=== PATIENT | male | born 1965 | race Caucasian/White ===

== ENCOUNTER 2021-09-19 08:21 | Emergency (ER) | payer MEDICAID, OTHER ==
[~2021-09-19] VITALS: Ht 177.8 cm; Wt 79.4 kg
[2021-09-19 08:52] LABS: Urine WBC None Seen /hpf (0 - 3)
[2021-09-19 09:06] LABS: Urine Bacteria NONE SEEN /hpf (None Seen); Urine Blood Negative /uL (Negative)
[2021-09-19 09:28] LABS: Basophils # (auto) 0 10 ^3/uL (0-0.2); Basophils % (auto) 0.6 % (0.0-2.0); Eosinophils # (auto) 0.3 10 ^3/uL (0-0.8); Eosinophils % (auto) 3.9 % (0.0-7.0); Hematocrit 44.8 % (41.0-53.0); Hemoglobin 15.6 g/dL (13.5-17.5); Lymphocytes # (auto) 1.5 10 ^3/uL (0.4-5.4); Lymphocytes % (auto) 20.3 % (10.0-50.0); Mean Corpuscular Hemoglobin 33.3 pg (28.0-32.0); Mean Corpuscular Hgb Conc. 34.9 g/dL (32.0-36.0); Mean Corpuscular Volume 95.4 fL (80.0-100.0); Monocytes # (auto) 0.6 10 ^3/uL (0-1.3); Monocytes % (auto) 8.3 % (0.0-12.0); Neutrophils # (auto) 4.9 10 ^3/uL (1.6-8.6); Neutrophils % (auto) 66.9 % (37.0-80.0); Red Blood Cells 4.69 10^6/uL (4.5-5.90); White Blood Cell 7.3 10^3/uL (4.4-10.8)
[2021-09-19 09:47] LABS: Calcium 8.7 mg/dL (8.5-10.1)
[2021-09-19 09:51] LABS: BUN/Creatinine Ratio 11.8; Bilirubin, Total 0.7 mg/dL (0.2-1.0); Total Protein 6.8 g/dL (6.4-8.2)
[2021-09-19 13:37] VITALS: BP 108/73
== END 2021-09-19 13:45 | disposition home or self-care (01) ==
LOC: ER 08:21
DX: R10.9 Unspecified abdominal pain (principal); F17.210 Nicotine dependence, cigarettes, uncomplicated; F12.10 Cannabis abuse, uncomplicated
CPT/HCPCS: 36415; 74176; 80053; 81001; 85025

== ENCOUNTER 2023-10-09 12:13 | Inpatient (IN) | payer MEDICAID ==
[~2023-10-09] VITALS: Ht 177.8 cm; Wt 63.5 kg
[2023-10-09 13:00] LABS: Basophils # (auto) 0 10 ^3/uL (0-0.2); Eosinophils # (auto) 0 10 ^3/uL (0-0.8); Monocytes # (auto) 0.7 10 ^3/uL (0-1.3); Monocytes % (auto) 10.1 % (0.0-12.0)
[2023-10-09 13:02] LABS: Basophils % (auto) 0.5 % (0.0-2.0); Eosinophils % (auto) 0.1 % (0.0-7.0); Hematocrit 39.7 % (41.0-53.0); Hemoglobin 14.2 g/dL (13.5-17.5); Lymphocytes # (auto) 1.1 10 ^3/uL (0.4-5.4); Lymphocytes % (auto) 16.3 % (10.0-50.0); Mean Corpuscular Hemoglobin 36.5 pg (28.0-32.0); Mean Corpuscular Hgb Conc. 35.8 g/dL (32.0-36.0); Mean Corpuscular Volume 101.9 fL (80.0-100.0); Nucleated Red Blood Cells % 0.1 %; Red Blood Cells 3.89 10^6/uL (4.5-5.90); Red Cell Distribution Width 14.3 % (11.8-14.3); White Blood Cell 6.8 10^3/uL (4.4-10.8)
[2023-10-09] MEDS: SODIUM CHLORIDE 0.9% 1,000 ML IVB ONE (13:08)
[2023-10-09 13:15] VITALS: PULSE 67; RESP 14; O2SAT 95
[2023-10-09] MEDS ORDERED: DOCUSATE SOD 100 MG CAP PO PRN (14:15)
[2023-10-09] MEDS ORDERED: HYDROcodone-ACET 5/325MG TAB PO PRN (14:15)
[2023-10-09] MEDS ORDERED: ACETAMINOPHEN 325 MG TAB PO PRN (14:15)
[2023-10-09] MEDS ORDERED: ONDANSETRON HCL 4 MG/2 ML VIAL IV PRN (14:15)
[2023-10-09 14:30] VITALS: PULSE 76; RESP 16; O2SAT 94
[2023-10-09] MEDS ORDERED: MORPHINE SULFATE INJ 2 MG/ml SYRG IV PRN (15:15)
[2023-10-09] MEDS ORDERED: NITROGLYCERIN 0.4 MG SL TAB SL PRN (15:15)
[2023-10-09] MEDS: SODIUM CHLORIDE 0.9% 1,000 ML IV ONE (16:57)
[2023-10-09 19:45] VITALS: PULSE 85; RESP 14; O2SAT 95
[2023-10-09] MEDS: SODIUM CHLORIDE 0.9% 1,000 ML IV SCH (20:16)
[2023-10-09 22:30] VITALS: BP 112/71; PULSE 71; RESP 18; TEMP 98.3; O2SAT 95
[2023-10-10] VITALS (7 sets, daily range): BP systolic 101–134; BP diastolic 55–79; PULSE 61–73; RESP 18–20; TEMP 97.8–98.5; O2SAT 98–99
[2023-10-10 07:30] LABS: Basophils # (auto) 0 10 ^3/uL (0-0.2); Eosinophils # (auto) 0 10 ^3/uL (0-0.8); Eosinophils % (auto) 0.5 % (0.0-7.0); Mean Corpuscular Hgb Conc. 35.2 g/dL (32.0-36.0); Monocytes # (auto) 0.4 10 ^3/uL (0-1.3); Neutrophils # (auto) 2.6 10 ^3/uL (1.6-8.6); Nucleated Red Blood Cells % 0.1 %
[2023-10-10 07:33] LABS: Basophils % (auto) 0.4 % (0.0-2.0); Hematocrit 34.2 % (41.0-53.0); Lymphocytes % (auto) 24.6 % (10.0-50.0); Mean Corpuscular Hemoglobin 36.3 pg (28.0-32.0); Mean Corpuscular Volume 103.2 fL (80.0-100.0); Monocytes % (auto) 10.9 % (0.0-12.0); Neutrophils % (auto) 63.6 % (37.0-80.0); Red Blood Cells 3.32 10^6/uL (4.5-5.90); Red Cell Distribution Width 14.1 % (11.8-14.3)
[2023-10-10 07:48] LABS: Alanine Aminotransferase 93 U/L (7-40); Albumin 3.7 g/dL (3.2-4.8); Alkaline Phosphatase 74 U/L (46-116); Anion Gap 8 (5-15); Aspartate Aminotransferase 78 U/L (13-40); BUN/Creatinine Ratio 27.3 (10.0-20.0); Bilirubin, Total 1.2 mg/dL (0.2-1.0); Blood Urea Nitrogen 18 mg/dL (9-23); Calcium 9.5 mg/dL (8.7-10.4); Carbon Dioxide 25 mmol/L (20-30); Chloride 112 mmol/L (98-107); Glucose 92 mg/dL (74-106); Potassium 3.5 mmol/L (3.5-5.1); Sodium 145 mmol/L (136-145)
[2023-10-10 07:49] LABS: Total Protein 5.6 g/dL (5.7-8.2)
[2023-10-11] VITALS (8 sets, daily range): BP systolic 106–122; BP diastolic 55–78; PULSE 51–61; RESP 15–20; TEMP 97.7–98.4; O2SAT 95–98
[2023-10-11 08:10] LABS: Basophils # (auto) 0 10 ^3/uL (0-0.2); Basophils % (auto) 0.7 % (0.0-2.0); Eosinophils # (auto) 0 10 ^3/uL (0-0.8); Eosinophils % (auto) 0.8 % (0.0-7.0); Hematocrit 35.5 % (41.0-53.0); Hemoglobin 12.2 g/dL (13.5-17.5); Lymphocytes # (auto) 1.1 10 ^3/uL (0.4-5.4); Lymphocytes % (auto) 28.6 % (10.0-50.0); Mean Corpuscular Hemoglobin 35.2 pg (28.0-32.0); Mean Corpuscular Hgb Conc. 34.3 g/dL (32.0-36.0); Mean Corpuscular Volume 102.8 fL (80.0-100.0); Monocytes # (auto) 0.4 10 ^3/uL (0-1.3); Monocytes % (auto) 11.8 % (0.0-12.0); Neutrophils # (auto) 2.2 10 ^3/uL (1.6-8.6); Neutrophils % (auto) 58.1 % (37.0-80.0); Nucleated Red Blood Cells % 0.4 %; Red Blood Cells 3.45 10^6/uL (4.5-5.90); Red Cell Distribution Width 14.3 % (11.8-14.3); White Blood Cell 3.8 10^3/uL (4.4-10.8)
[2023-10-11 08:33] LABS: Alanine Aminotransferase 93 U/L (7-40); Albumin 3.6 g/dL (3.2-4.8); Alkaline Phosphatase 72 U/L (46-116); Anion Gap 8 (5-15); Aspartate Aminotransferase 75 U/L (13-40); BUN/Creatinine Ratio 21.3 (10.0-20.0); Blood Urea Nitrogen 13 mg/dL (9-23); Calcium 9.6 mg/dL (8.7-10.4); Carbon Dioxide 25 mmol/L (20-30); Chloride 112 mmol/L (98-107); Glucose 95 mg/dL (74-106); Potassium 3.5 mmol/L (3.5-5.1); Sodium 145 mmol/L (136-145)
[2023-10-11 08:34] LABS: Bilirubin, Total 1.2 mg/dL (0.2-1.0); Total Protein 5.4 g/dL (5.7-8.2)
[2023-10-11 23:25] LABS: Urine Bacteria None Seen /hpf (None Seen)
[2023-10-11 23:38] LABS: Urine Blood Negative /uL (Negative); Urine Clarity Clear (Clear); Urine Color Yellow (Yellow); Urine Mucus FEW (None Seen); Urine Protein, UAD Negative (Negative); Urine Specific Gravity 1.017 (1.001-1.035); Urine Urobilinogen 4 mg/dL (Negative); Urine WBC <1 /hpf (0 - 3)
[2023-10-11 23:45] LABS: Amphetamine Screen, Urine Neg (NEGATIVE); Barbiturate Scree,Urine Neg (NEGATIVE); Benzodiazephine Screen, Urine Neg (NEGATIVE); Cannabinoid Screen, Urine Neg (NEGATIVE); Cocaine Screen, Urine Neg (NEGATIVE); Opiate Scree,Urine Neg (NEGATIVE); Phencyclidine Screen, Urine Neg (NEGATIVE)
[2023-10-12] VITALS (7 sets, daily range): BP systolic 119–143; BP diastolic 73–84; PULSE 49–68; RESP 16–20; TEMP 97.5–98.5; O2SAT 96–98
[2023-10-12 06:41] LABS: Basophils # (auto) 0 10 ^3/uL (0-0.2); Eosinophils # (auto) 0 10 ^3/uL (0-0.8); Hemoglobin 10.3 g/dL (13.5-17.5); Monocytes # (auto) 0.3 10 ^3/uL (0-1.3); Neutrophils # (auto) 1.7 10 ^3/uL (1.6-8.6)
[2023-10-12 06:44] LABS: Basophils % (auto) 0.9 % (0.0-2.0); Eosinophils % (auto) 1.3 % (0.0-7.0); Hematocrit 29.4 % (41.0-53.0); Lymphocytes % (auto) 32.3 % (10.0-50.0); Mean Corpuscular Hemoglobin 36.8 pg (28.0-32.0); Mean Corpuscular Hgb Conc. 35.1 g/dL (32.0-36.0); Mean Corpuscular Volume 104.7 fL (80.0-100.0); Monocytes % (auto) 9.5 % (0.0-12.0); Nucleated Red Blood Cells % 0.3 %; Red Blood Cells 2.81 10^6/uL (4.5-5.90); Red Cell Distribution Width 14.3 % (11.8-14.3)
[2023-10-12 06:51] LABS: Alanine Aminotransferase 82 U/L (7-40); Albumin 3.3 g/dL (3.2-4.8); Alkaline Phosphatase 67 U/L (46-116); Anion Gap 6 (5-15); Aspartate Aminotransferase 60 U/L (13-40); BUN/Creatinine Ratio 19.1 (10.0-20.0); Bilirubin, Total 1.3 mg/dL (0.2-1.0); Blood Urea Nitrogen 9 mg/dL (9-23); Calcium 8.9 mg/dL (8.7-10.4); Carbon Dioxide 25 mmol/L (20-30); Chloride 113 mmol/L (98-107); Glucose 92 mg/dL (74-106); Potassium 3.1 mmol/L (3.5-5.1); Sodium 144 mmol/L (136-145); Total Protein 5.1 g/dL (5.7-8.2)
[2023-10-12] MEDS ORDERED: POTASSIUM CHL 20MEQ/100ML 100 ML IV SCH (09:15)
[2023-10-12] MEDS: POTASSIUM CHL 20MEQ/100ML 100 ML IV SCH (11:18)
[2023-10-12] MEDS ORDERED: ENOXAPARIN SOD 40 MG/0.4 ML SYRINGE SC ONE (12:15)
[2023-10-12] MEDS: POTASSIUM EFFERVESENT TAB 25 MEQ PO ONE (16:11)
[2023-10-12] MEDS: LACTULOSE 20Gm/30ML SOLN PO ONE (16:11)
[2023-10-13] VITALS (7 sets, daily range): BP systolic 109–124; BP diastolic 57–81; PULSE 56–71; RESP 16–20; TEMP 97.1–97.9; O2SAT 97–98
[2023-10-13 07:32] LABS: Basophils # (auto) 0 10 ^3/uL (0-0.2); Basophils % (auto) 0.5 % (0.0-2.0); Eosinophils # (auto) 0 10 ^3/uL (0-0.8); Eosinophils % (auto) 1.3 % (0.0-7.0); Hematocrit 33.5 % (41.0-53.0); Hemoglobin 11.7 g/dL (13.5-17.5); Lymphocytes # (auto) 1.1 10 ^3/uL (0.4-5.4); Lymphocytes % (auto) 29.1 % (10.0-50.0); Mean Corpuscular Hemoglobin 35.4 pg (28.0-32.0); Mean Corpuscular Hgb Conc. 34.8 g/dL (32.0-36.0); Mean Corpuscular Volume 101.7 fL (80.0-100.0); Monocytes # (auto) 0.4 10 ^3/uL (0-1.3); Monocytes % (auto) 11.4 % (0.0-12.0); Neutrophils # (auto) 2.1 10 ^3/uL (1.6-8.6); Neutrophils % (auto) 57.7 % (37.0-80.0); Red Blood Cells 3.29 10^6/uL (4.5-5.90); Red Cell Distribution Width 14.3 % (11.8-14.3); White Blood Cell 3.6 10^3/uL (4.4-10.8)
[2023-10-13 07:51] LABS: Alanine Aminotransferase 73 U/L (7-40); Albumin 3.2 g/dL (3.2-4.8); Alkaline Phosphatase 68 U/L (46-116); Anion Gap 7 (5-15); Aspartate Aminotransferase 48 U/L (13-40); BUN/Creatinine Ratio 19.6 (10.0-20.0); Blood Urea Nitrogen 9 mg/dL (9-23); Calcium 8.8 mg/dL (8.7-10.4); Carbon Dioxide 24 mmol/L (20-30); Chloride 110 mmol/L (98-107); Glucose 100 mg/dL (74-106); Potassium 3.5 mmol/L (3.5-5.1); Sodium 141 mmol/L (136-145)
[2023-10-13 07:52] LABS: Bilirubin, Total 1.4 mg/dL (0.2-1.0); Total Protein 5.1 g/dL (5.7-8.2)
[2023-10-13] MEDS ORDERED: ENOXAPARIN SOD 40 MG/0.4 ML SYRINGE SC SCH (10:00)
[2023-10-13] MEDS: THIAMINE 100mg/ml INJ (200mg/2ml VIAL) IV ONE (18:00)
[2023-10-13] MEDS: FOLIC ACID 1 MG in D5W 5% 50 ML INJ ONE (18:05)
[2023-10-14] VITALS (7 sets, daily range): BP systolic 99–121; BP diastolic 63–79; PULSE 60–85; RESP 18–20; TEMP 97.6–98.4; O2SAT 95–98
[2023-10-14 06:24] LABS: Basophils # (auto) 0 10 ^3/uL (0-0.2); Eosinophils # (auto) 0.1 10 ^3/uL (0-0.8); Lymphocytes # (auto) 1.4 10 ^3/uL (0.4-5.4); Monocytes # (auto) 0.4 10 ^3/uL (0-1.3); Neutrophils # (auto) 2.1 10 ^3/uL (1.6-8.6)
[2023-10-14 06:26] LABS: Basophils % (auto) 0.6 % (0.0-2.0); Eosinophils % (auto) 1.8 % (0.0-7.0); Hematocrit 33.3 % (41.0-53.0); Lymphocytes % (auto) 33.8 % (10.0-50.0); Mean Corpuscular Hemoglobin 36.1 pg (28.0-32.0); Mean Corpuscular Volume 100.2 fL (80.0-100.0); Monocytes % (auto) 10.6 % (0.0-12.0); Neutrophils % (auto) 53.2 % (37.0-80.0); Nucleated Red Blood Cells % 0.1 %; Red Blood Cells 3.33 10^6/uL (4.5-5.90)
[2023-10-14 06:52] LABS: Anion Gap 8 (5-15); Carbon Dioxide 24 mmol/L (20-30); Chloride 107 mmol/L (98-107); Potassium 3.7 mmol/L (3.5-5.1); Sodium 139 mmol/L (136-145)
[2023-10-14 06:54] LABS: Calcium 9.3 mg/dL (8.7-10.4)
[2023-10-14 06:58] LABS: BUN/Creatinine Ratio 19.6 (10.0-20.0); Blood Urea Nitrogen 9 mg/dL (9-23); Glucose 84 mg/dL (74-106)
[2023-10-14] MEDS: ENOXAPARIN SOD 40 MG/0.4 ML SYRINGE SC SCH (10:00)
[2023-10-14] MEDS: FOLIC ACID 1 MG in D5W 5% 50 ML INJ SCH (11:29)
[2023-10-15 01:00] VITALS: BP 122/67; PULSE 72; RESP 16; TEMP 97.1; O2SAT 100
[2023-10-15 04:56] VITALS: BP 101/82; PULSE 61; RESP 15; TEMP 97.4; O2SAT 98
[2023-10-15 06:02] LABS: Basophils # (auto) 0 10 ^3/uL (0-0.2); Basophils % (auto) 0.8 % (0.0-2.0); Eosinophils # (auto) 0.1 10 ^3/uL (0-0.8); Lymphocytes # (auto) 1.4 10 ^3/uL (0.4-5.4); Monocytes # (auto) 0.4 10 ^3/uL (0-1.3); Neutrophils # (auto) 1.8 10 ^3/uL (1.6-8.6); Nucleated Red Blood Cells % 0.2 %; Red Blood Cells 3.04 10^6/uL (4.5-5.90)
[2023-10-15 06:04] LABS: Eosinophils % (auto) 1.9 % (0.0-7.0); Hematocrit 30.4 % (41.0-53.0); Hemoglobin 10.9 g/dL (13.5-17.5); Lymphocytes % (auto) 37.5 % (10.0-50.0); Mean Corpuscular Hemoglobin 35.9 pg (28.0-32.0); Mean Corpuscular Hgb Conc. 35.9 g/dL (32.0-36.0); Mean Corpuscular Volume 100.1 fL (80.0-100.0); Neutrophils % (auto) 48.8 % (37.0-80.0); Red Cell Distribution Width 13.8 % (11.8-14.3); White Blood Cell 3.8 10^3/uL (4.4-10.8)
[2023-10-15 06:10] LABS: Alanine Aminotransferase 61 U/L (7-40); Alkaline Phosphatase 69 U/L (46-116); Anion Gap 7 (5-15); BUN/Creatinine Ratio 18.4 (10.0-20.0); Blood Urea Nitrogen 9 mg/dL (9-23); Calcium 9.6 mg/dL (8.7-10.4); Carbon Dioxide 25 mmol/L (20-30); Chloride 109 mmol/L (98-107); Glucose 82 mg/dL (74-106); Potassium 3.4 mmol/L (3.5-5.1); Sodium 141 mmol/L (136-145)
[2023-10-15 06:11] LABS: Albumin 3.2 g/dL (3.2-4.8); Aspartate Aminotransferase 39 U/L (13-40); Bilirubin, Total 1.1 mg/dL (0.2-1.0); Total Protein 5.1 g/dL (5.7-8.2)
[2023-10-15 09:00] VITALS: BP 101/59; PULSE 58; RESP 18; TEMP 98.3; O2SAT 97
[2023-10-15] MEDS: POTASSIUM EFFERVESENT TAB 25 MEQ PO ONE (11:17)
[2023-10-15 12:51] VITALS: BP 106/66; PULSE 98; RESP 18; TEMP 97.9; O2SAT 97
[2023-10-15 16:57] VITALS: BP 96/63; PULSE 102; RESP 16; TEMP 98.1; O2SAT 98
[2023-10-16 01:00] VITALS: BP 106/74; PULSE 67; RESP 18; TEMP 97.5; O2SAT 98
[2023-10-16 09:00] VITALS: BP 128/90; PULSE 110; RESP 22; TEMP 98.1; O2SAT 99
[2023-10-16 13:00] VITALS: BP 93/50; PULSE 60; RESP 21; TEMP 98.2; O2SAT 92
[2023-10-16 17:00] VITALS: BP 112/72; PULSE 56; RESP 20; TEMP 97.2; O2SAT 92
[2023-10-16 21:23] VITALS: BP 113/78; PULSE 60; RESP 18; TEMP 97.9; O2SAT 98
[2023-10-17 08:46] VITALS: BP 104/71; PULSE 63; RESP 16; TEMP 98.6; O2SAT 91
[2023-10-17 12:55] VITALS: BP 102/66; PULSE 87; RESP 16; TEMP 98.7; O2SAT 97
[2023-10-17 16:19] VITALS: BP 95/67; PULSE 65; RESP 16; TEMP 98.7; O2SAT 100
[2023-10-18 01:00] VITALS: BP 108/62; PULSE 61; RESP 17; TEMP 98.9; O2SAT 96
[2023-10-18 05:00] VITALS: BP 104/66; PULSE 63; RESP 17; TEMP 98.6; O2SAT 97
[2023-10-18 09:11] VITALS: BP 103/64; PULSE 66; RESP 16; TEMP 98.3; O2SAT 96
[2023-10-18 13:18] VITALS: BP 109/62; PULSE 69; RESP 17; TEMP 98.5; O2SAT 96
== END 2023-10-18 17:00 | DRG 422 ==
LOC: ER 12:13 → EDBD 12:13 → TELE 15:15 → TELE-WESTW 22:35 → WEST WING 10-15 05:18
PROVIDERS: ADMIT Internal Medicine Geriatric Medicine; ATTEND Internal Medicine Geriatric Medicine
DX: E86.0 Dehydration (principal); G93.41 Metabolic encephalopathy; E43 Unspecified severe protein-calorie malnutrition; D61.818 Other pancytopenia; K76.82 Hepatic encephalopathy; E72.20 Disorder of urea cycle metabolism, unspecified; F17.210 Nicotine dependence, cigarettes, uncomplicated; R74.01 Elevation of levels of liver transaminase levels; E87.6 Hypokalemia; F10.10 Alcohol abuse, uncomplicated; Z59.00 Homelessness unspecified; Z68.1 Body mass index [BMI] 19.9 or less, adult; Z79.899 Other long term (current) drug therapy; Y90.0 Blood alcohol level of less than 20 mg/100 ml
CPT/HCPCS: 36415; 70450; 80048; 80053; 80307; 80320; 81001; 82140; 82306; 82607; 82962; 83036; 83735; 84484; 85025; 92610; 93005; 96360; 96361; 97110; 97116; 97163; 97530; 99291; G0378; J2405; J3480; J7060